=== PATIENT | female | born 1980 | race Caucasian/White ===

== ENCOUNTER 2023-03-16 11:29 | Outpatient (CLI) | payer OTHER, SELFPAY | END 2023-03-16 11:30 | disposition home or self-care (01) | PROVIDERS: PCP Family Medicine; Visit Provider Family Medicine | DX: E78.2 Mixed hyperlipidemia (principal); I10 Essential (primary) hypertension; E11.9 Type 2 diabetes mellitus without complications | CPT/HCPCS: 80048; 80061; 84460 ==

== ENCOUNTER 2023-05-04 14:48 | Outpatient (CLI) | payer OTHER, SELFPAY | END 2023-05-04 14:49 | disposition home or self-care (01) | LOC: NFLDREF 14:49 | PROVIDERS: PCP Family Medicine; Visit Provider Family Medicine | DX: R10.9 Unspecified abdominal pain (principal); E11.9 Type 2 diabetes mellitus without complications; I10 Essential (primary) hypertension; E78.2 Mixed hyperlipidemia | CPT/HCPCS: 80076; 83690 ==

== ENCOUNTER 2023-05-08 14:24 | Outpatient (CLI) | payer OTHER, SELFPAY ==
--- NOTE | 2023-05-08 15:00 | CRLHL7_ITS ---
For Patients: As a result of the Century Cures Act, medical imaging exams and procedure reports are released immediately into your electronic medical record. You may view this report before your referring provider. If you have questions, please contact your health care provider. INDICATION: History of cholelithiasis COMPARISON: none TECHNIQUE: Real time flores scale imaging and color Doppler analysis was performed of the right upper quadrant. FINDINGS: The patient`s liver is of normal size and has mildly coarsened echogenicity. There is a normal appearance of the hepatic IVC and proximal abdominal aorta. There is no evidence of ascites. The gallbladder is of normal size and there is no evidence of intraluminal stones or sludge. The gallbladder wall measures 1.1 mm in thickness. The common bile duct is of normal size and measures 3.4 mm in diameter at the level of the juan hepatis. The pancreas appears normal. There is no evidence of a stone or hydronephrosis within the right kidney. The right kidney measures cm in length. IMPRESSION: Hepatic steatosis. Normal gallbladder. No evidence of gallstones. Dictated by Basil Adams MD @ 05/09/2023 12:46:28 PM (Electronically Signed)
== END 2023-05-08 14:25 | disposition home or self-care (01) ==
PROVIDERS: PCP Family Medicine; Visit Provider Family Medicine
DX: K80.20 Calculus of gallbladder without cholecystitis without obstruction (principal); K76.0 Fatty (change of) liver, not elsewhere classified
CPT/HCPCS: 76705

== ENCOUNTER 2023-11-16 12:56 | Outpatient (CLI) | payer OTHER, SELFPAY | END 2023-11-16 12:57 | disposition home or self-care (01) | PROVIDERS: PCP Family Medicine; Visit Provider Family Medicine | DX: E78.2 Mixed hyperlipidemia (principal); I10 Essential (primary) hypertension | CPT/HCPCS: 80048; 80061 ==

== ENCOUNTER 2024-05-29 10:40 | Outpatient (CLI) | payer OTHER, SELFPAY ==
--- OUTSIDE RECORDS SUMMARY | 2024-05-29 10:48 | XMS_ITS | Continuity of Care Document ---
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 [id number] Lab request NICOLAS LEONG 06/23 Released w/o Limitations [employer]([facility]) [employer]([facility]) OUTPATIENT [id number] my eye is red and swallon . JULIANA RODRÍGUEZ 07/01 Released w/o Limitations [employer]([facility]) [employer]([facility]) TELE CONSULT [id number] Call concern ing missed period and negativ e pregnan cy test @ AISSATOU STEWART 07/26 [employer]([facility]) [employer]([facility]) OUTPATIENT [id number] missed period/ req. preg test CLINT VIRAMONTES 07/29 Released w/o Limitations [employer]([facility]) [employer]([facility]) OUTPATIENT [id number] having pain in my hips RAMIREZ CANTU 09/03 Released w/o Limitations [employer]([facility]) [employer]([facility]) TELE CONSULT [id number] referra l for cortwinston ne ANTHONY Lucas 09/27 [employer]([facility]) [employer]([facility]) OUTPATIENT [id number] paps/no c CLINT VIRAMONTES 11/09 Released w/o Limitations [employer]([facility]) [employer]([facility]) OUTPATIENT [id number] allergi es/669 1196/no c BIA WALLS 11/18 Released w/o Limitations [employer]([facility]) [employer]([facility]) OUTPATIENT [id number] possibl e sun poison/ noc JULIANA RODRÍGUEZ 11/24 Released w/o Limitations [employer]([facility]) [employer]([facility]) OUTPATIENT [id number] sinus infecti on/noc JUNIOR, MERCY B 01/17 Released w/o Limitations [employer]([facility]) [employer]([facility]) OUTPATIENT [id number] injured toe/669 1196/no XOCHITL Mann 02/02 Released w/o Limitations [employer]([facility]) [employer]([facility]) TELE CONSULT [id number] 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 BOSTON HANCOCK 02/17 [employer]([facility]) [employer]([facility]) OUTPATIENT [id number] f/u primed/ noc JULIANA RODRÍGUEZ 02/18 Released w/o Limitations [employer]([facility]) [employer]([facility]) TELE CONSULT [id number] MRI needed call 833 119ANTHONY BARAJAS 03/23 Referred for Appointment [employer]([facility]) [employer]([facility]) OUTPATIENT [id number] siatic nerve pain/ noc JUNIOR, MERCY B 03/24 Released w/o Limitations [employer]([facility]) [employer]([facility]) OUTPATIENT [id number] f/u/noc JUNOIR, MERCY B 04/12 Released w/o Limitations [employer]([facility]) [employer]([facility]) OUTPATIENT [id number] toe infecti on/noc/ JUNIOR, MERCY B 04/22 Released w/o Limitations [employer]([facility]) [employer]([facility]) TELE CONSULT [id number] regardi jane carpio for foot ANTHONY MATTA 05/19 Referred for Appointment [employer]([facility]) [employer]([facility]) TELE CONSULT [id number] Needs referra l to Shubham Wicksan [facility] ANTHONY MATTA Anila 05/20 Referred for Appointment [employer]([facility]) [employer]([facility] Non-Ad) OUTPATIENT [id number] DMIS 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:ra sh on hands/ JULIANA Brown 11/28 Released w/o Limitations [employer]([facility] Non-Ad) [employer]([facility] Non-Ad) TELE CONSULT [id number] Youth Services Specialist AMADO CASTRO 12/12 [employer]([facility] Non-Ad) [employer]([facility] [facility] Non-Ad) OUTPATIENT [id number] rash/DM IS 0004/NO C JULIANA RODRÍGUEZ 12/23 Released w/o Limitations [employer]([facility] Non-Ad) [employer]([facility] [facility] Non-Ad) OUTPATIENT [id number] rash/dm is 0004/no c XOCHITL ZAVALA 01/03 Released w/o Limitations [employer]([facility] Non-Ad) [employer]([facility] [facility] Non-Ad) OUTPATIENT [id number] DMIS 0004: pain from chest to back x3 days/ alt no- 669.119 6/ JULIANA Brown 01/16 Released w/o Limitations [employer]([facility] Non-Ad) [employer]([facility]_ Team B N/A) TELE CONSULT [id number] LAVON CALDERON 03/16 [employer]([facility] _ Team B N/A) [employer]([facility]_ Team B N/A) TELE CONSULT [id number] LAVON CALDERON 03/20 [employer](Z [facility] _ Team B N/A) [employer]([facility]) TELE CONSULT [id number] authori zation needed fro IV/anti biotics call [phone] NICKOLAS FLOWER R 05/17 Immediate Referral [employer] [employer]([facility]) OUTPATIENT [id number] knee issues. noc.dmi s 0004 BARBARA HERNANDEZ 05/30 Released w/o Limitations [employer]([facility] [employer]([facility]) TELE CONSULT [id number] X ray results needed call [phone] NICKOLAS FLOWER R 06/06 Advice Assessment [employer]([facility]) [employer]([facility]) TELE CONSULT [id number] BG elevate d if fasting Please repeat labs NICKOLAS FLOWER R 06/08 Advice Assessment [employer]([facility]) [employer]([facility]) OUTPATIENT [id number] DMIS 0004/ne ck pain/66 9 1196/no c BARBARA HERNANDEZ NMParish 06/19 Released w/o Limitations [employer]([facility]) [employer](ZZ_ [facility] Team A -Ad) TELE CONSULT [id number] ASP DEVELOPER BOSTON HANCOCK 07/10 [employer]([facility] Team A -Ad) [employer]([facility]) OUTPATIENT [id number] eval ovarian pain/ alt no- 669.119 6/ noc BARBARA HERNANDEZ NMParish 08/16 Released w/o Limitations [employer]([facility]) [employer]([facility]) TELE CONSULT [id number] yeast -start difluca n NICKOLAS FLOWER R 08/17 Medication Refill Forwarded [employer]([facility]) [employer]([facility]) TELE CONSULT [id number] Urgent care referra l; [place] [facility]; [phone]. NICKOLAS FLOWER R 09/18 Immediate Referral [employer]([facility]) [employer]([facility]) OUTPATIENT [id number] flu lke symptom s/ alt no- 669.119 6/ noc BARBARA HERNANDEZ 11/02 Released w/o Limitations [employer]([facility]) [employer]([facility]) TELE CONSULT [id number] Referra l for Breast bx. NICKOLAS FLOWER 11/15 Immediate Referral [employer]([facility]) [employer]([facility]) OUTPATIENT [id number] DMIS 0004/ra sh on breast/ 446 1196/no c BARBARA HERNANDEZ 12/12 Released w/o Limitations [employer]([facility]) [employer]([facility]) TELE CONSULT [id number] REPORT Call [phone] NICKOLAS FLOWER 12/21 Other Not Elsewhere Classified [employer]([facility]) [employer]([facility]) OUTPATIENT [id number] F/U suture removal ; [phone]. BARBARA HERNANDEZ 12/28 Released w/o Limitations [employer]([facility]) [employer]([facility]) TELE CONSULT [id number] call regardjose david lara 4JUN urgent care visit for breathi ng issues @ [phone] NICKOLAS FLOWER R 01/29 Other Not Elsewhere Classified [employer]([facility]) [employer]([facility]) TELE CONSULT [id number] Notes Entered by: Kiran ODEN 13 Feb 2012 1410 ------- ------- ------- ------- -- stilll not feeling better NICKOLAS FLOWER 02/12 Referred for Appointment [employer]([facility]) [employer]([facility]) OUTPATIENT [id number] F/U Bronchi tis; continu es cough and some wheezin g. [phone]. BARBARA HERNANDEZ 02/13 Released w/o Limitations [employer]([facility]) [employer]([facility]) OUTPATIENT [id number] eval back pain/ alt no- 669.119 6/ noc BARBARA HERNANDEZ 03/29 Released w/o Limitations [employer]([facility]) [employer]([facility]) OUTPATIENT [id number] f/u on blood pressur e and med refill/ alt no- 669.119 6/ noc BARBARA HERNANDEZ 05/24 Released w/o Limitations [employer]([facility]) [employer]([facility]) TELE CONSULT [id number] Notes Entered by: MICKIE LEARY 26 Jun 2012 1147 ------- ------- ------- ------- -- Abdomin al crampin g/spott ing call [phone] NICKOLAS FLOWER 06/26 Advice Assessment [employer]([facility]) [employer]([facility] Med Cl Team B Non-Ad) OUTPATIENT [id number] Notes Entered by: Ernestina BALDWIN 28 Jun 2012 1407 ------- ------- ------- ------- -- Preganc y test SIMON BAILEY 06/28 Released w/o Limitations [employer]([facility] Med Cl Team B Non-Ad) [employer]([facility] Operation al Medicine) OUTPATIENT [id number] initial pcm visit-- ---back pain DEVIKA STONER 03/30 Released w/o Limitations [employer]([facility]) [employer]([facility]) TELE CONSULT [id number] Notes Entered by: JORGE SAWYER 20 Apr 2014 1019 ------- ------- ------- ------- -- Gen dueñas MARIEL MIRANDA 04/20 Referred for Appointment [facility] on[facility] Medicin e) [address] [place] [address]([facility]) TELE CONSULT [id number] Notes Entered by: Danelle STONER 07 May 2014 0630 ------- ------- ------- ------- -- MRI result SHRADDHA FELIZ 05/07 Referred for Appointment [address] [place] [address] Group([facility] on[facility]in e) [address] [place] [address]([facility]) OUTPATIENT [id number] ER f/u- nodule on lung DEVIKA STONER 05/28 Released w/o Limitations [address] [place] [address]([facility]) [address] [place] [address]([facility]) TELE CONSULT [id number] Notes Entered by: Danelle STONER 15 Jul 2014 0726 ------- ------- ------- ------- -- CT result DEVIKA STONER 07/[address] [place] [address]([facility]) [address] [place] [address](Pul monary [facility]) OUTPATIENT [id number] Imaging Studies Nonspec ific Abnorma l Finding s KULDIP LAKHANI 08/07 Released w/o Limitations [address] [place] [address](P ulmonar y [facility]TF) [address] [place] [address](Pul monary Procedure s) OUTPATIENT [id number] Nathaniel PFT per REYNA Maurice 08/10 Released w/o Limitations [address] [place] [address](P ulmonar y Procedu res) [address] [place] [address]([facility]) TELE CONSULT [id number] Notes Entered by: AMRIT EMERY 26 Oct 2014 0846 ------- ------- ------- ------- -- med refill- --bridg e 0 left MARIEL MIRANDA 10/26 Referred for Appointment [facility] Oper[facility] onal Medicin e) [facility]) OUTPATIENT [id number] med refill- --bp DEVIKA STONER A 10/29 Released w/o Limitations [facility] ar[facility] Oper[facility] onal Medicin e) [facility]) TELE CONSULT [id number] Notes Entered by: Nadiya YANES 19 Nov 2014 1139 ------- ------- ------- ------- -- Refused Appts - lump jaw/shiv HAZEL Morris 11/19 [facility] ar[facility] Operati onal Medicin e) [facility] Medical [facility]) OUTPATIENT [id number] evaluat e lump on jaw DEVIKA STONER A 11/23 Released w/o Limitations [facility](W ar[facility] Operati onal Medicin e) [facility](Irena parra [facility]) TELE CONSULT [id number] Notes Entered by: MONIKA GOLDBERG SA 18 Feb 2015 0956 ------- ------- ------- ------- -- noncomp liant of CT f/u VELVET ARNOLD 02/18 Referred for Appointment [facility](Kellee oconnor [facility]) [facility] [place] [facility] Team B) OUTPATIENT [id number] C/o Rt Sided Mid Back Pain X1.5d DEVIKA STONER Kiran 02/22 Released w/o Limitations [facility](F amily Medicin e Team B) [facility]([employer]) OUTPATIENT [id number] PJ IRENE 02/22 Released w/o Limitations [facility]([employer]) [facility](Irena parra [facility]) TELE CONSULT [id number] Notes Entered by: MONIKA GOLDBERG SA 16 Mar 2015 0848 ------- ------- ------- ------- -- pt noncomp liant getting CT of chest complet ed VELVET ARNOLD Ernestina 03/16 Referred for Appointment [facility](P christiano y [facility]) [facility](Pul taraary [facility]) TELE CONSULT [id number] Notes Entered by: MONIKA GOLDBERG SA 14 Apr 2015 1002 ------- ------- ------- ------- -- Returne d Certifi ed notific ation letter to sched e Ct for pulm nodules VELVET ARNOLD Ernestina 04/14 Referred for Appointment [facility](P christiano y [facility]) [facility]( [employer]) OUTPATIENT [id number] nal decline d: back pain/sp asm up and down back x4days JOSE PALMER 07/08 Released w/o Limitations [facility]( H [employer] Team) [facility] Medicine Team F) OUTPATIENT [id number] new pt/esta mindy care/ dicatio n review DAVID CID 09/21 Released w/o Limitations [facility](F amily Medicin e Team F) [facility] Medicine Team F) TELE CONSULT [id number] Notes Entered by: ANDREW BLANCO 03 Oct 2017 1641 ------- ------- ------- ------- -- Radiolo gy results PETROS RAMON 10/03 Advice Assessment [facility](F amily Medicin e Team F) [facility] Medicine Team F) OUTPATIENT [id number] F/U KARMA HER 10/05 Released w/o Limitations [facility](F amily Medicin e Team F) [facility] Medicine Team F) TELE CONSULT [id number] Notes Entered by: Lizeth HER 25 Oct 2017 1651 ------- ------- ------- ------- -- test results PETROS RAMON Kiran 10/25 Other Not Elsewhere Classified [facility](F amily Medicin e Team F) [facility](Oph thalmolog y) OUTPATIENT [id number] flashes of lights both eyes associa percy with RAMIREZ Casillas 11/12 Released w/o Limitations [facility](O phthalm ology) [facility] TELE CONSULT [id number] Notes Entered by: SADAF SUTHERLAND 14 Nov 2017 1238 ------- ------- ------- ------- -- Med Refill 4 days left RAMONPETROS STOCK Kiran 11/14 Other Not Elsewhere Classified [facility]( amily Medicin e Team F) [facility] TELE CONSULT [id number] PETROS RAMON Kiran 12/10 Other Not Elsewhere Classified [facility]( amily Medicin e Team F) [facility] TELE CONSULT [id number] Notes Entered by: Emma CHANEL 25 Dec 2017 1304 ------- ------- ------- ------- -- Medicat ion renewal - 0 days left RAMONPETROS STOCK Kiran 12/25 Other Not Elsewhere Classified [facility]( amily Medicin e Team F) [facility] OUTPATIENT [id number] Follow up Medicai ton Fertili ty [phone] ENEIDA NGUYEN 02/15 Released w/o Limitations [facility]( amily Medicin e Team F) [facility]) OUTPATIENT [id number] Female inferti diya, darricki TAMIKA Hoover 05/07 Released w/o Limitations [facility]) [facility](End ocrinolog y and Infertili ty) TELE CONSULT [id number] Notes Entered by: LEODAN ALVARADO A 09 May 2018 1147 ------- ------- ------- ------- -- BLANCO Enriquez 05/09 Referred for Appointment [employer](E ndocrin ology and Inferti lity) [facility](Com prehensiv e Medicatio n Manag) OUTPATIENT [id number] Talk about marino win BP meds MARGIE RED 05/23 Released w/o Limitations [employer](C omprehe nsive Medicat ion Manag) [facility](End ocrinolog y and Infertili ty) OUTPATIENT [id number] Female eugenio keane, unspeci AMRIT Brewer 06/13 Released w/o Limitations [employer](E ndocrin ology and Inferti lity) [facility] OUTPATIENT [id number] [phone] f/u with bp med CHRISTINE MOSES 06/13 Released w/o Limitations [employer](F amily Medicin e Team F) [facility](End ocrinolog y and Infertili ty) OUTPATIENT [id number] AMRIT Lawler 07/09 Released w/o Limitations [employer](E ndocrin ology and Inferti lity) [facility] Psych) OUTPATIENT [id number] Female eugenio keane, unspeci TAMIKA Lewis 07/11 Released w/o Limitations [employer](F HC Behavio ral Health Psych) [employer] [facility] Group([facility] [place] Medicine [facility] F) OUTPATIENT [id number] Medicat ion ERIKA MCGOWAN 07/16 Released w/o Limitations [employer](F [facility]ily Medicin e Team F) [facility] [place] [facility] E) OUTPATIENT [id number] Notes Entered by: LU ARZATE 31 Jul 2018 1334 ------- ------- ------- ------- -- follow up BP ERIKA MCGOWAN 07/31 Released w/o Limitations [facility](F amily Medicin e Team E) [facility] [place] [facility] E) TELE CONSULT [id number] Notes Entered by: Izzy CARRASCO 02 Aug 2018 0901 ------- ------- ------- ------- -- [facility] initial 7-10 days call JOSTIN CARRASCO 08/02 Referred for Appointment [facility](F amily Medicin e Team E) [facility] [place] [facility] E) TELE CONSULT [id number] Notes Entered by: Ernestina SIMMONS 02 Oct 2018 1243 ------- ------- ------- ------- -- HEADACH E, SINUS INFECTI ON GS_CARY TRINH 10/02 Referred for Appointment [facility](F amily Medicin e Team E) [facility] TELE CONSULT [id number] Notes Entered by: Izzy CARRASCO 21 Oct 2018 1101 ------- ------- ------- ------- -- [facility] 4th week f/u call JOSTIN CARRASCO 10/21 Referred for Appointment [facility](F [facility] Medicin e Team E) [facility] [place] [facility] E) OUTPATIENT [id number] checkup for depress ion, med refill and congest ion,dry throat x 2mos ERIKA MCGOWAN 10/23 Released w/o Limitations [facility](F [facility] Medicin e Team E) [facility] [place] [facility] E) OUTPATIENT [id number] * knee pain ERIKA MCGOWAN 11/07 Released w/o Limitations [facility](F [facility] Medicin e Team E) [facility] [place] Medicine Team M) TELE CONSULT [id number] Notes Entered by: LINDA MILAN 26 Nov 2018 1618 ------- ------- ------- ------- -- Allergy test result JACQUELINE JULISA B 11/26 Referred for Appointment [employer](F [facility] Medicin e Team M) [facility] Group([facility] Medicine Team E) TELE CONSULT [id number] Notes Entered by: Izzy CARRASCO 17 Dec 2018 0717 ------- ------- ------- ------- -- Dis-orlando arias from the [facility] program JOSTIN CARRASCO 12/17 Referred for Appointment [facility](F [facility] Medicin e Team E) [facility] Medicine Team M) OUTPATIENT [id number] medicat ion renewal GARY APONTE 12/19 Released w/o Limitations [facility](F [facility] Medicin e Team M) [facility]) OUTPATIENT [id number] rt shoulde r pain FELICIA WRIGHT 05/02 Released w/o Limitations [facility](F [facility] Medicin e Team M) [facility]) OUTPATIENT [id number] congest ion/sin us pain STUBJASON ROY 06/11 Released w/o Limitations [facility](F [facility] Medicin e Team E) [facility] Medicine Team E) TELE CONSULT [id number] Notes Entered by: LEYVA 11 Jun 2019 1637 ------- ------- ------- ------- -- med refill CARY MARIN 06/11 Referred for Appointment [employer](F [facility] Medicin e Team E) [facility](Ear /Nose[facility]Thr oat Clinic) OUTPATIENT [id number] Chronic sinusit is, unspeci DAVID Abdalla 06/18 Released w/o Limitations [facility](E ar/Nose /Throat Clinic) [facility] [place] [facility] E) OUTPATIENT [id number] f/u UC - pain in abdomen STUBBLEFIE MANOLO, JASON A 09/23 Released w/o Limitations [facility](F [facility] Medicin e Team E) [facility] TELE CONSULT [id number] Notes Entered by: SADAF SUTHERLAND 17 Dec 2019 1028 ------- ------- ------- ------- -- Med refill 0 days left YOBANI_CARY TRINH Kiran 12/16 Referred for Appointment [facility]( [facility] Medicin e Team E) [facility]) OUTPATIENT [id number] * VE [phone] breathi ng issues asthmat ic x decline ANUJA GREEN 01/25 Released w/o Limitations [facility]( [facility] Medicin e Team E) [facility] TELE CONSULT [id number] Notes Entered by: PATTI FRANCIS 19 Feb 2020 0854 ------- ------- ------- ------- -- COVID 19 Testing STUBBLEFIE LD, JASON A 02/18 [facility]( am[facility] Medicin e Team E) [facility] Medicine Team M) OUTPATIENT [id number] 3 *ve [phone] back spasms x 2wks BHARATH BEAVER 06/21 Released w/o Limitations [facility]( [facility] Medicin e Team M) [facility] OUTPATIENT [id number] * back spasms BHARATH BEAVER 09/28 Released w/o Limitations [facility]( amily Medicin e Team M) [facility]) TELE CONSULT [id number] Notes Entered by: JEF BEAVER 30 Sep 2020 0927 ------- ------- ------- ------- -- APPT DENNISSANG BHARATH M 09/30 [facility]( [facility] Medicin e Team M) [facility] Medicine Team ) OUTPATIENT [id number] back pain sag DENNISBHARATH DOMÍNGUEZ 10/07 Released w/o Limitations [facility]( amily Medicin e Team M) [facility] Medicine Team ) TELE CONSULT [id number] Notes Entered by: JEF BEAVER 13 Oct 2020 1644 ------- ------- ------- ------- -- LAB SD BHARATH M 10/13 [facility]( derik Medicin e Team M) [facility] Medicine Team ) OUTPATIENT [id number] Discuss labs SD BHARATH M 10/20 Released w/o Limitations [facility]( [facility] Medicin e Team M) [facility] Group(Dis ease Managemen t) TELE CONSULT [id number] Notes Entered by: Amarjit FELIZ 27 Oct 2020 1521 ------- ------- ------- ------- -- SHRADDHA Jhaveri 10/27 Released to Self Care [facility] Group(Patrick isease Managem ent) [facility] Group([facility] Medicine Team ) TELE CONSULT [id number] Notes Entered by: SDJEF A M 04 Nov 2020 1216 ------- ------- ------- ------- -- OTHER JOSELYN LANDEROS 11/04 Other Not Elsewhere Classified [facility] Group( amily Medicin e Team M) [facility] Group([facility]) OUTPATIENT [id number] sx no smell,t aste and fatigue x4 days, exp yes [id number] , no uni AMIRA TREJO 12/14 Released w/o Limitations [address] [place] [address](C [facility] Clinic) [facility] Medical [facility] TELE CONSULT [id number] Notes Entered by: JOSE JEFFERS 15 Dec 2020 0905 ------- ------- ------- ------- -- lab COVID results BHARATH BEAVER 12/15 [facility] Medical [facility](F amily Medicin e Team M) [address] [place] [address](COV ID Clinic) TELE CONSULT [id number] Notes Entered by: Patrick GONZALEZ 16 Dec 2020 0939 ------- ------- ------- ------- -- Bamlani vimab plus etesevi mab screeni INDRA Huntley 12/[address] [place] [address](C OVID Clinic) [facility] Medical [facility] ) TELE CONSULT [id number] Notes Entered by: RON VILLATORO 16 Dec 2020 1013 ------- ------- ------- ------- -- other Arunid Ab perez GS_CARY TRINH 12/16 Released to Self Care [facility] Medical [facility]( amily Medicin e Team M) [facility] Medical [facility]) TELE CONSULT [id number] Notes Entered by: YASMIN CRUZ 23 Dec 2020 0950 ------- ------- ------- ------- -- MABEL-PPS M-Med KANDICE Campos 12/23 Other Not Elsewhere Classified [facility] Medical [facility]( amily Medicin e Team M) [facility] Medical [facility] [place] Medicine [facility] M) OUTPATIENT [id number] 7 *VE shoulde r pain x 4 days BHARATH BEAVER 05/07 /2021 Released w/o Limitations [employer](F [facility] Medicin e Team M) [employer]([facility] [place] Medicine Team M) TELE CONSULT [id number] Notes Entered by: JEF BEAVER 06 Jan 2021 0758 ------- ------- ------- ------- -- BRITTANEY ONEILL 01/06 Other Not Elsewhere Classified [facility](F amily Medicin e Team M) [facility] [place] Medicine Team M) OUTPATIENT [id number] [phone] f/u with lab BHARATH BEAVER 01/07 Released w/o Limitations [facility] Group( amily Medicin e Team M) Procedures Combined list of: 1) Procedures from Department of Veterans Affairs facilities going back up to thelast 18 months, not all VA non-surgical procedures are included; 2) All procedures from the Department of Defense facilities. Procedure Procedure Type Code Date Perfomer Comments [facility] e URINALYSIS, BY DIP STICK OR TABLET REAGENT FOR BILIRUBIN, GLUCOSE, HEMOGLOBIN, KETONES, LEUKOCYTES, NITRITE, PH, PROTEIN, SPEC GRAVITY, UROBILINOGEN, ANY NUMBER OF CONSTITUENTS; W/O MICRO, AUTOMATED 2003 [facility] ANALYSIS OF CLINICAL DATA STORED IN COMPUTERS (EG, ECGS, BLOOD PRESSURES, HEMATOLOGIC DATA) 2003 [facility] ULTRASOUND, UTERUS, REAL TIME WITH IMAGE DOCUMENTATION, LIMITED (EG, HEART BEAT, PLACENTAL LOCATION, POSITION AND/OR QUALITATIVE AMNIOTIC FLUID VOLUME), 1 OR MORE FETUSES 2003 [facility]D URINALYSIS, BY DIP STICK OR TABLET REAGENT FOR BILIRUBIN, GLUCOSE, HEMOGLOBIN, KETONES, LEUKOCYTES, NITRITE, PH, PROTEIN, SPEC GRAVITY, UROBILINOGEN, ANY NUMBER OF CONSTITUENTS; W/O MICRO, AUTOMATED 2003 [facility] COLLECTION OF VENOUS BLOOD BY VENIPUNCTURE 2003 DoD SCREENING PAPANICOLAOU SMEAR; OBTAINING, PREPARING AND CONVEYANCE OF CERVICAL OR VAGINAL SMEAR TO LABORATORY 2002 DoD COLLECTION OF VENOUS BLOOD BY VENIPUNCTURE 2002 DoD INDIVIDUAL PSYCHOTHERAPY, INSIGHT ORIENTED, BEHAVIOR MODIFYING AND/OR SUPPORTIVE, IN AN OFFICE OR OUTPATIENT FACILITY, APPROXIMATELY 45 TO 50 MINUTES [id number] WITH THE PATIENT 2002 DoD SIMPLE REPAIR OF SUPERFICIAL WOUNDS OF FACE, EARS, EYELIDS, NOSE, LIPS AND/OR MUCOUS MEMBRANES; 2.5 CM OR LESS 2002 [facility] COLLECTION OF VENOUS BLOOD BY VENIPUNCTURE 2001 DoD WAIVER SERVICES; NOT OTHERWISE SPECIFIED (NOS) 2020 DoD TELE ASSESS & MGT SRV PROV QUAL NONPHYS HLTH CARE PRO TO EST PAT,PARENT,GUARD NOT ORIG REL ASSESS & MGT SRV PROV W/IN PREV 7 DAYS NOR LEAD ASSESS & MGT SRV/PX W/IN NXT 24 HR/SOON APT;5-10 MIN MED DIS 2020 DoD HOSPITAL OUTPATIENT CLINIC VISIT SPECIMEN COLLECTION FOR SEVERE ACUTE RESPIRATORY SYNDROME CORONAVIRUS 2 (SARS-COV-2) (CORONAVIRUS DISEASE [COVID-19]), ANY SPECIMEN SOURCE 2020 DoD TELE ASSESS & MGT SRV PROV QUAL NONPHYS HLTH CARE PRO TO EST PAT,PARENT,GUARD NOT ORIG REL ASSESS & MGT SRV PROV W/IN PREV 7 DAYS NOR LEAD ASSESS & MGT SRV/PX W/IN NXT 24 HR/SOON APT;5-10 MIN MED DIS 2020 DoD WAIVER SERVICES; NOT OTHERWISE SPECIFIED (NOS) 2020 DoD WAIVER SERVICES; NOT OTHERWISE SPECIFIED (NOS) 2020 DoD WAIVER SERVICES; NOT OTHERWISE SPECIFIED (NOS) 2019 [facility] ELECTROCARDIOGRAM, ROUTINE ECG WITH AT LEAST 12 LEADS; WITH INTERPRETATION AND REPORT 2019 DoD WAIVER SERVICES; NOT OTHERWISE SPECIFIED (NOS) 2019 DoD TELE ASSESS & MGT SRV PROV QUAL NONPHYS HLTH CARE PRO TO EST PAT,PARENT,GUARD NOT ORIG REL ASSESS & MGT SRV PROV W/IN PREV 7 DAYS NOR LEAD ASSESS & MGT SRV/PX W/IN NXT 24 HR/SOON APT;5-10 MIN MED DIS 2019 DoD NASAL ENDOSCOPY, DIAGNOSTIC, UNILATERAL OR BILATERAL (SEPARATE PROCEDURE) 2018 DoD TELE ASSESS & MGT SRV PROV QUAL NONPHYS HLTH CARE PRO TO EST PAT,PARENT,GUARD NOT ORIG REL ASSESS & MGT SRV PROV W/IN PREV 7 DAYS NOR LEAD ASSESS & MGT SRV/PX W/IN NXT 24 HR/SOON APT;5-10 MIN MED DIS 2018 DoD TELE ASSESS & MGT SRV PROV QUAL NONPHYS HLTH CARE PRO TO EST PAT,PARENT,GUARD NOT ORIG REL ASSESS & MGT SRV PROV W/IN PREV 7 DAYS NOR LEAD ASSESS & MGT SRV/PX W/IN NXT 24 HR/SOON APT;5-10 MIN MED DIS 2018 DoD BRIEF EMOTIONAL/BEHAVIORAL ASSESSMENT (EG, DEPRESSION INVENTORY, ATTENTION-DEFICIT/HY PERACTIVITY DISORDER [ADHD] SCALE), WITH SCORING AND DOCUMENTATION, PER STANDARDIZED INSTRUMENT 2017 DoD BRIEF EMOTIONAL/BEHAVIORAL ASSESSMENT (EG, DEPRESSION INVENTORY, ATTENTION-DEFICIT/HY PERACTIVITY DISORDER [ADHD] SCALE), WITH SCORING AND DOCUMENTATION, PER STANDARDIZED INSTRUMENT 2017 DoD BRIEF EMOTIONAL/BEHAVIORAL ASSESSMENT (EG, DEPRESSION INVENTORY, ATTENTION-DEFICIT/HY PERACTIVITY DISORDER [ADHD] SCALE), WITH SCORING AND DOCUMENTATION, PER STANDARDIZED INSTRUMENT 2017 [facility] PHYS/OTH QUALIFIED HEALTH SUPPLIER DEVELOPMENT MANAGER QUALIFIED,EDUCATION, TRAIN,LICENSURE/REGU LATION (WHEN APPLICABLE) EDUC SER RENDERED TO PATS IN A GRP SETTING (EG,,OBESITY ,OR DIABETIC INSTRUCT) 2017 DoD MEDICATION THERAPY MGT SERVICE(S) PROVIDED,A PHARMACIST,INDIV,FAC E-TO-FACE W PATIENT,WITH ASSESS & INTERVENE IF PROVIDED;EA ADDITION 15 MINUTES (LIST SEPARATELY IN ADDITION TO CODE FOR PRIM SERVICE) 2017 DoD TELE ASSESS & MGT SRV PROV QUAL NONPHYS HLTH CARE PRO TO EST PAT,PARENT,GUARD NOT ORIG REL ASSESS & MGT SRV PROV W/IN PREV 7 DAYS NOR LEAD ASSESS & MGT SRV/PX W/IN NXT 24 HR/SOON APT;5-10 MIN MED DIS 2017 DoD SCREENING PAPANICOLAOU SMEAR; OBTAINING, PREPARING AND CONVEYANCE OF CERVICAL OR VAGINAL SMEAR TO LABORATORY 2017 DoD ONLINE ASSESS &MANAG SERV PROVIDE,A QUAL NONPHYS HCP TO AN ESTABLISHED PAT/GUARDIAN,NOT ORIGINAT FRM RELAT ASSESS &MANAG SERV PROVIDE W/IN THE PREV 7 DAYS,USE THE [employer] 2017 DoD TELE ASSESS & MGT SRV PROV QUAL NONPHYS HLTH CARE PRO TO EST PAT,PARENT,GUARD NOT ORIG REL ASSESS & MGT SRV PROV W/IN PREV 7 DAYS NOR LEAD ASSESS & MGT SRV/PX W/IN NXT 24 HR/SOON APT;5-10 MIN MED DIS 2017 DoD TELE ASSESS & MGT SRV PROV QUAL NONPHYS HLTH CARE PRO TO EST PAT,PARENT,GUARD NOT ORIG REL ASSESS & MGT SRV PROV W/IN PREV 7 DAYS NOR LEAD ASSESS & MGT SRV/PX W/IN NXT 24 HR/SOON APT;5-10 MIN MED DIS 2017 DoD TELE ASSESS & MGT SRV PROV QUAL NONPHYS HLTH CARE PRO TO EST PAT,PARENT,GUARD NOT ORIG REL ASSESS & MGT SRV PROV W/IN PREV 7 DAYS NOR LEAD ASSESS & MGT SRV/PX W/IN NXT 24 HR/SOON APT;5-10 MIN MED DIS 2017 DoD OPHTHALMOLOGICAL SERVICES: MEDICAL EXAMINATION AND EVALUATION WITH INITIATION OF DIAGNOSTIC AND TREATMENT PROGRAM; COMPREHENSIVE, NEW PATIENT, 1 OR MORE VISITS 2017 DoD TELE ASSESS & MGT SRV PROV QUAL NONPHYS HLTH CARE PRO TO EST PAT,PARENT,GUARD NOT ORIG REL ASSESS & MGT SRV PROV W/IN PREV 7 DAYS NOR LEAD ASSESS & MGT SRV/PX W/IN NXT 24 HR/SOON APT;5-10 MIN MED DIS 2017 DoD CRUTCHES UNDERARM, OTHER THAN WOOD, ADJUSTABLE OR FIXED, PAIR, WITH PADS, TIPS AND HANDGRIPS 2014 DoD ORTHOTIC(S) MANAGEMENT AND TRAINING (INCLUDING ASSESSMENT AND FITTING WHEN NOT OTHERWISE REPORTED),UPPER EXTREMITY(IES),LOWER EXTREMITY(IES) AND/OR TRUNK,INITIAL ORTHOTIC(S) ENCOUNTER,EACH 15 MINUTES 2014 DoD SPIROMETRY, INCLUDING GRAPHIC RECORD, TOTAL AND TIMED VITAL CAPACITY, EXPIRATORY FLOW RATE MEASUREMENT(S), WITH OR WITHOUT MAXIMAL VOLUNTARY VENTILATION 2013 DoD ALBUTEROL, UP TO 2.5 MG AND IPRATROPIUM BROMIDE, UP TO 0.5 MG, FDA-APPROVED FINAL PRODUCT, NON-COMPOUNDED, ADMINISTERED THROUGH DME 2013 DoD INTRODUCTION OF NEEDLE OR INTRACATHETER, VEIN 2013 DoD TELE ASSESS & MGT SRV PROV QUAL NONPHYS HLTH CARE PRO TO EST PAT,PARENT,GUARD NOT ORIG REL ASSESS & MGT SRV PROV W/IN PREV 7 DAYS NOR LEAD ASSESS & MGT SRV/PX W/IN NXT 24 HR/SOON APT;5-10 MIN MED DIS 2011 [facility] ELECTROCARDIOGRAM, ROUTINE ECG WITH AT LEAST 12 LEADS; WITH INTERPRETATION AND REPORT 2010 [facility] SCREENING PAPANICOLAOU SMEAR; OBTAINING, PREPARING AND CONVEYANCE OF CERVICAL OR VAGINAL SMEAR TO LABORATORY 2009 [facility] REMOVAL OF INTRAUTERINE DEVICE (IUD) 2008 [facility] SCREENING PAPANICOLAOU SMEAR; OBTAINING, PREPARING AND CONVEYANCE OF CERVICAL OR VAGINAL SMEAR TO LABORATORY 2006 [facility] NONINVASIVE EAR OR PULSE OXIMETRY FOR OXYGEN SATURATION; SINGLE DETERMINATION 2006 [facility] NONINVASIVE EAR OR PULSE OXIMETRY FOR OXYGEN SATURATION; SINGLE DETERMINATION 2005 [facility] INJECTION, METHYLPREDNISOLONE SODIUM SUCCINATE, UP TO [address] [facility] SCREENING PAPANICOLAOU SMEAR; OBTAINING, PREPARING AND CONVEYANCE OF CERVICAL OR VAGINAL SMEAR TO LABORATORY 2004 [facility] PSYCHIATRIC DIAGNOSTIC INTERVIEW EXAMINATION 2004 [facility] POSTOPERATIVE FOLLOW-UP VISIT, NORMALLY INCLUDED IN THE SURGICAL PACKAGE, INDICATE THAT EVALUATION & MANAGEMENT SERVICE WAS PERFORMED DURING A POSTOPERATIVE PERIOD REASON RELATED ORIGINAL PROCEDURE 2003 [facility] Non-Physician Phone Call To Patient/Provider Brief (5-10min) Non-Physician Phone Call To Patient/Provider Brief (5-10min) [id number] [facility] Disease management program; initial a e ment and initiation of the program [address] [facility] Psychometric Emotional / Behavioral A e ment Psychometric Emotional / Behavioral Assessment [id number] [facility] Psychometric Emotional / Behavioral A e ment Psychometric Emotional / Behavioral Assessment [address] [facility] Health And Behav A e mt Each 15 Min Initial A e ment Health And Behav Assessmt Each 15 Min Initial Assessment [id number] [facility] Internet Med Svc Qual Nonphys Healthcare Prof Up To 7 Days Estab Patient Internet Med Svc Qual Nonphys Healthcare Prof Up To 7 Days Estab Patient [id number] [facility] Medication Management By Pharmacist Initial 15 Minutes New Patient Medication Management By Pharmacist Initial 15 Minutes New Patient [id number] 2017 MARGIE RED Spent 30 min with patient DoD Medication Management By Pharmacist Each Additional 15 Minutes Medication Management By Pharmacist Each Additional 15 Minutes [id number] 2017 MARGIE RED Spent [address] [facility] Screening papanicolaou smear; obtaining, preparing and conveyance of cervical or vaginal smear to laboratory [address] [facility] Non-Physician Phone Call To Patient/Provider Brief (5-10min) Non-Physician Phone Call To Patient/Provider Brief (5-10min) [id number] [facility] Internet Med Svc Qual Nonphys Healthcare Prof Up To 7 Days Estab Patient Internet Med Svc Qual Nonphys Healthcare Prof Up To 7 Days Estab Patient [id number] [facility] Non-Physician Phone Call To Patient/Provider Brief (5-10min) Non-Physician Phone Call To Patient/Provider Brief (5-10min) [id number] [facility] Non-Physician Phone Call To Patient/Provider Brief (5-10min) Non-Physician Phone Call To Patient/Provider Brief (5-10min) [id number] [facility] Non-Physician Phone Call To Patient/Provider Brief (5-10min) Non-Physician Phone Call To Patient/Provider Brief (5-10min) [id number] [facility] Ophthalmological New Patient Start Comprehensive Care Ophthalmological New Patient Start Comprehensive Care [id number] [facility] Non-Physician Phone Call To Patient/Provider Brief (5-10min) Non-Physician Phone Call To Patient/Provider Brief (5-10min) [id number] [facility] Winch Runner Educ Orthotics Training Each Additional 15 Minutes [address] [facility] Foot, arch support, removable, premolded, longitudinal, each [address] [facility] Spirometry Pre-bronchodilator Spirometry Pre-bronchodilator [address] [facility] Non-Physician Phone Call To Patient/Provider Brief (5-10min) Non-Physician Phone Call To Patient/Provider Brief (5-10min) [id number] [facility] ECG 12-Lead With Interpretation And Report ECG 12-Lead With Interpretation And Report [id number] [facility] Screening papanicolaou smear; obtaining, preparing and conveyance of cervical or vaginal smear to laboratory [address] [facility] Gynecologic Services Intrauterine Device (IUD) Removal Gynecologic Services Intrauterine Device (IUD) Removal [address] [facility] Oropharynx Culture Streptococcus Group A Beta Hemolytic Oropharynx Culture Streptococcus Group A Beta Hemolytic [address] [facility] Annual gynecological examination, new patient [address] [facility] Screening papanicolaou smear; obtaining, preparing and conveyance of cervical or vaginal smear to laboratory 2006 [place] Pulse Oximetry Pulse Oximetry [address] [facility] Spirometry Peak Expiratory Flow Spirometry Peak Expiratory Flow 67437 2005 SULY CISNEROS Pulse Oximetry Pulse Oximetry [address] [facility] Injection, methylprednisolone sodium succinate, up to 125 mg [address] [facility] Physician Supervised Injection Physician Supervised Injection [address] [facility] Screening papanicolaou smear; obtaining, preparing and conveyance of cervical or vaginal smear to laboratory [address] [facility] Non-Physician Phone Call To Patient/Provider Brief (5-10min) Non-Physician Phone Call To Patient/Provider Brief (5-10min) [id number] YOBANI_CARY TRINH [facility] Nasal Endoscopy (diagnostic) Nasal Endoscopy (diagnostic) [id number] DAVID CARREON DoD Waiver services; not otherwise specified (NOS) ANUJA MELTON [facility] PHYSICIAN CODER/BMX RIDER services, up to [address] [facility] Hospital outpatient clinic visit specimen collection for severe acute respiratory syndrome coronavirus 2 (sars-cov-2) (coronavirus disease [covid-19]), any specimen source AMIRA TREJO 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 Social History Type Response Date Comment Sourc e This section is an empty social history section. DoD Assessment and Plan Combined list of future care activities from Department of Defense and Veterans Affairs facilities (e.g., assessment and plan notes, appointments, orders, and referrals). Additional future care activities may be listed in the Plan of Care section. Result Assessment and Plan Date Source Assessment and Plan No data available for this section 05/29/2024 Ambulatory Pharmacy Functional Status Combined list of recent functional and cognitive assessments recorded at [employer] [place] Functional [place] Measurement (FIM) Scale: 1 = Total Assistance (Subject = 0% +), 2 = Maximal Assistance (Subject = 25% +), 3 = Moderate Assistance (Subject = 50% +), 4 = Minimal Assistance (Subject = 75% +), 5 = Supervision, 6 = Modified [place] (Device), 7 = Complete [place] (Timely, Safely). Assessment Date/Time Source Assessment Type Assessment Skill Assessment Score Assessment Details No data available for this section
--- OUTSIDE RECORDS SUMMARY | 2024-05-29 10:48 | XMS_ITS | Clinical Summary ---
Author Organization [facility] Address [address] [address] Phone Care Team Providers Care Injection Molding Machine Offbearer Name Role Phone Elsewhere, Pcp Primary Care Provider Unavailabl e Allergies Active Allergy Reactions Criticality Noted Date Comments Codeine Headache Medium 12/12/2023 Reaction(s): Dyspnea, Headache Medications Medication Sig Dispensed Refills Start Date End Date Status atorvaSTATin (Lipitor) 80 MG tablet 11/18/2023 Active ezetimibe (Zetia) 10 MG tablet 03/30/2023 Active FLUoxetine (PROzac) 40 MG capsule 06/11/2023 Active losartan-hydroCHLOROthiazide (Hyzaar) 50-12.5 MG oral tablet 11/16/2023 Active metFORMIN-XR (Glucophage-XR) 500 MG 24 hour tablet 07/09/2023 Active metoprolol succinate (Toprol-XL) 50 MG 24 hour extended-release tablet 01/12/2021 Active pantoprazole (Protonix) 40 MG delayed-release tablet 05/04/2023 Ac tive Active Problems Problem Noted Date Diagnosed Date Allergic rhinitis 12/12/2023 Allergies 12/12/2023 Anxiety disorder, unspecified 12/12/2023 Cough variant asthma 12/12/2023 Overview: pt has great h/o of allergy induced asthma, will add advair to dialy meds during allergy season, pt instructed how to use inhaler. Essential (primary) hypertension 12/12/2023 Hyperlipidemia, unspecified 12/12/2023 Type 2 diabetes mellitus without complications 0 12/12/2023 Social History Tobacco Use Types Packs/Day Years Used Date Smoking Tobacco: Never Passive Smoke Exposure: Never Smokeless Tobacco: Never Sex and Gender Information Value Date Recorded Sex Assigned at Not on file Gender Identity Not on file Sexual Orientation Not on file Obstetrics History Last Filed Vital Signs Vital Sign Reading Time Taken Comments Blood Pressure 113/78 12/12/2023 10:15 AM CDT Pulse 77 12/12/2023 10:15 AM CDT Temperature 36.1 ??C (97 ??F) 12/12/2023 10:15 AM CDT Respiratory Rate 20 12/12/2023 10:15 AM CDT Oxygen Saturation 98% 12/12/2023 10:15 AM CDT Inhaled Oxygen Concentration - - Weight 102.7 kg (226 lb 8 oz) 12/12/2023 10:15 A M CDT Height - - Body Mass Index - - Plan of Treatment Health Maintenance Due Date Last Done Comments Cervical Cancer Screening 1982 Last pap w/ HPV Testing 1982 Last pap w/o HPV Testing 1982 MAMMO,SCREEN 1982 Pneumococcal/PCV20 Vaccine: Pediatrics (2-5 yrs) and At-Risk Patients (6-64 yrs) (Standing Order) (1 of 2 - PCV) 1988 DIABETES HGB A1C Q6 MONTHS (Standing Order) 2000 DIABETES LIPID PROFILE Q5 YE ARS (Standing Order) 2000 DIABETES MICROALBUMIN Q1 YEA R (Standing Order) 2000 DIABETES SERUM CREATININE Q1 YEAR (Standing Order) 2000 DIABETIC EYE EXAM 2000 Hepatitis B Vaccine (Standin g Order) (1 of 3 - 19+ 3-dose series) 2001 PERTUSSIS (Standing Order) 2001 TETANUS (Standing Order) 2001 COVID-19 Vaccine ( - 2022-2 4 season) 2024 Influenza Vaccine Seasonal (Standing Order) (#1) 2024 HPV Vaccine (Standing Order) Aged Out No longer eligible based on patient's age to complete this topic Care Teams Injection Molding Machine Offbearer Relationship Specialty Start Date End Date Elsewhere, Pcp PCP - General 12/12/23
== END 2024-05-29 10:41 | disposition home or self-care (01) ==
PROVIDERS: PCP Family Medicine; Visit Provider Family Medicine
DX: E78.2 Mixed hyperlipidemia (principal); I10 Essential (primary) hypertension; E11.9 Type 2 diabetes mellitus without complications; E61.1 Iron deficiency; R53.83 Other fatigue
CPT/HCPCS: 82728; 83540; 84443; 85025

== ENCOUNTER 2024-09-05 09:41 | Outpatient (CLI) | payer OTHER, SELFPAY | END 2024-09-05 09:42 | disposition home or self-care (01) | PROVIDERS: PCP Family Medicine; Visit Provider Family Medicine | DX: E78.2 Mixed hyperlipidemia (principal); E11.9 Type 2 diabetes mellitus without complications; Z79.899 Other long term (current) drug therapy | CPT/HCPCS: 80048; 80061; 84460 ==

== ENCOUNTER 2024-10-31 09:07 | Outpatient (CLI) | payer OTHER, SELFPAY | END 2024-10-31 09:08 | disposition home or self-care (01) | LOC: MAMMO 09:09 | PROVIDERS: PCP Family Medicine; Visit Provider Family Medicine | DX: Z12.31 Encounter for screening mammogram for malignant neoplasm of breast (principal) | CPT/HCPCS: 77063; 77067 ==